=== PATIENT | female | born 2000 | race American Indian/Alaskan Native ===

== ENCOUNTER 2018-06-25 10:17 | Emergency (ER) | payer OTHER ==
[~2018-06-25] VITALS: Ht 170.2 cm; Wt 59.0 kg
[~2018-06-25 10:17] MED LIST: BENADRYL; Bactrim Ds Tab1 EACH PO; CEPH250SUA PO; CEPH500 PO; CODACEE120 PO; Cleocin HCl150 MG PO; IBUP800; Keflex500 MG PO; MUPI2TC TOP; PRED10 PO; SULTRIDS PO; SULTRIEL PO; Ultram50 MG PO; Verotin-Gr Cap1 EACH; [UNRECOGNIZED DRUG - OTHER]
[2018-06-25] MEDS ORDERED: TYLENOL325 MG (10:37)
[2018-06-25] MEDS ORDERED: Cyclobenzaprine5 MG PO (10:45)
== END 2018-06-25 10:50 | disposition home or self-care (01) ==
LOC: ER 10:17
DX: S46.812A Strain of other muscles, fascia and tendons at shoulder and upper arm level, left arm, initial encounter (principal); F17.210 Nicotine dependence, cigarettes, uncomplicated; Z88.0 Allergy status to penicillin; X58.XXXA Exposure to other specified factors, initial encounter